=== PATIENT | male | born 1990 | race Caucasian/White ===

== ENCOUNTER 2016-07-20 09:02 | Emergency (ER) | payer MEDICAID | END 2016-07-20 11:07 | disposition home or self-care (01) | LOC: D.ER 09:02 | DX: S83.92XA Sprain of unspecified site of left knee, initial encounter (principal); W19.XXXA Unspecified fall, initial encounter; Y93.51 Activity, roller skating (inline) and skateboarding; Y92.410 Unspecified street and highway as the place of occurrence of the external cause ==

== ENCOUNTER 2016-09-09 17:21 | Emergency (ER) | payer MEDICAID | END 2016-09-09 19:37 | disposition home or self-care (01) | LOC: D.ER 17:21 | DX: S63.501A Unspecified sprain of right wrist, initial encounter (principal); W19.XXXA Unspecified fall, initial encounter; Y93.51 Activity, roller skating (inline) and skateboarding; Y92.89 Other specified places as the place of occurrence of the external cause; F17.200 Nicotine dependence, unspecified, uncomplicated ==

== ENCOUNTER 2018-11-19 22:04 | Inpatient (IN) | payer MEDICAID ==
[~2018-11-19] VITALS: Ht 177.8 cm; Wt 92.3 kg
[2018-11-19 22:51] LABS: BASOPHILS 0.1 % (0-2); EOSINOPHILS 0.3 % (0-7); HEMATOCRIT 45.6 % (42.0-54.0); HEMOGLOBIN 16.9 g/dL (13.5-17.5); IMMATURE GRANULOCYTES 0.3 % (0-5); LYMPHOCYTES 14.8 % (15-50); MCH 30.7 pg (26.0-34.0); MCHC 37.1 g/dL (31.0-37.0); MCV 82.8 fL (80.0-100.0); MEAN PLATELET VOLUME 9.1 fL (7.4-10.4); MONOCYTES 16.5 % (2-11); PLATELET COUNT 234 10x3/uL (130-400); RBC 5.51 10x6/uL (4.20-6.10); RDW 13.1 % (11.5-14.5); WBC 17.3 10x3/uL (4.8-10.8)
[2018-11-19 23:24] LABS: ANION GAP 21.4 mmol/L (8-16); BILIRUBIN - TOTAL 1.4 mg/dL (0.2-1.3); CARBON DIOXIDE 22.4 mmol/L (21.0-32.0); CREATININE - SERUM 3.6 mg/dL (0.6-1.3); POTASSIUM - SERUM 3.8 mmol/L (3.5-5.1); PROTEIN - SERUM 9.1 g/dL (6.4-8.2)
[2018-11-19 23:31] LABS: THYROID STIMULATING HORMONE 1.17 uIU/mL (0.36-3.74)
--- NOTE | 2018-11-19 23:46 | NUR ---
PT GIVEN BLANKET.
[2018-11-20 00:24] LABS: APPEARANCE HAZY (CLEAR); BILIRUBIN NEGATIVE (NEGATIVE); COLOR YELLOW (YELLOW); GLUCOSE NEGATIVE (NEGATIVE); KETONE NEGATIVE (NEGATIVE); NITRITE NEGATIVE (NEGATIVE); PROTEIN 1+ mg/dL (NEGATIVE); UROBILINOGEN NORMAL (NORMAL)
[2018-11-20 00:26] LABS: BACTERIA MODERATE /hpf (NONE SEEN); EPITHELIAL CELLS 0-5 /hpf (0-5); MUCUS <1+ /lpf (NONE SEEN); RED CELLS - URINE 0-5 /hpf (0-5); WHITE CELLS - URINE 0-5 /hpf (0-5)
[2018-11-20 00:27] LABS: CALCIUM OXALATE CRYSTALS 0-5 /hpf (NONE SEEN)
[2018-11-20 00:30] LABS: UDS - AMPHET POSITIVE QUAL (NEGATIVE); UDS - BARB NEGATIVE QUAL (NEGATIVE); UDS - BENZO NEGATIVE QUAL (NEGATIVE); UDS - COCAINE NEGATIVE QUAL (NEGATIVE); UDS - OPIATE NEGATIVE QUAL (NEGATIVE); UDS - PCP NEGATIVE QUAL (NEGATIVE); UDS - THC NEGATIVE QUAL (NEGATIVE)
[2018-11-20 00:50] LABS: CREATINE KINASE 950 UL (21-232)
[2018-11-20 00:51] LABS: CKMB 9.5 U/L (0.0-3.6)
--- NOTE | 2018-11-20 01:55 | NUR ---
PT'S SECOND 1000ML BOLUS OF NORMAL SALINE FINISHED.
[2018-11-20 02:33] VITALS: BP 121/67; Ht 177.8 cm; Wt 92.3 kg
--- NOTE | 2018-11-20 03:32 | NUR ---
PT LEFT FLOOR. 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 EXPLAINED TO PT THAT IS NOT ALLOWED ON HIS DIET HE LEFT IT ON THE COUNTER AND WALKED BACK TO HIS ROOM
--- NOTE | 2018-11-20 04:43 | NUR ---
PT REMOVED IV AT THIS TIME. IV WAS FOUND ON GROUND WITH BLOOD SURROUNDING IT. PT STATES HE WAS "TRYING TO TAKE OFF MY SHIRT" IV RESITED TO L HAND 20G 1 ATTEMPT.
[2018-11-20 05:11] LABS: BASOPHILS 0.2 % (0-2); EOSINOPHILS 0.8 % (0-7); HEMATOCRIT 40.6 % (42.0-54.0); HEMOGLOBIN 14.6 g/dL (13.5-17.5); IMMATURE GRANULOCYTES 0.2 % (0-5); LYMPHOCYTES 30.7 % (15-50); MCV 83.5 fL (80.0-100.0); MEAN PLATELET VOLUME 9.3 fL (7.4-10.4); MONOCYTES 15.6 % (2-11); NEUTROPHILS 52.5 % (40-80); PLATELET COUNT 211 10x3/uL (130-400); RBC 4.86 10x6/uL (4.20-6.10); RDW 13.2 % (11.5-14.5)
[2018-11-20 05:26] LABS: WBC 12.7 10x3/uL (4.8-10.8)
[2018-11-20 05:34] LABS: ANION GAP 16.1 mmol/L (8-16); BILIRUBIN - TOTAL 1.43 mg/dL (0.2-1.3); CALCIUM 8.1 mg/dL (8.5-10.1); CARBON DIOXIDE 24.1 mmol/L (21.0-32.0); MAGNESIUM - SERUM 2.4 mg/dL (1.8-2.4); PHOSPHOROUS 4.5 mg/dL (2.5-4.9); PROTEIN - SERUM 7.5 g/dL (6.4-8.2)
[2018-11-20 05:37] LABS: CREATININE - SERUM 2.1 mg/dL (0.6-1.3); POTASSIUM - SERUM 3.2 mmol/L (3.5-5.1)
--- NOTE | 2018-11-20 07:10 | NUR ---
REPORT RECEIVED FROM MOBILE DEVICE DEVELOPER AND PATIENT CARE ASSUMED. PATIENT LAYING IN BED ON LT SIDE WITH EYES CLOSED AND BREATHING EVENLY. PATIENT IS STABLE AND VSS. WILL CONTINUE WITH PLAN OF CARE. SR UP X 2 BED IN LOW POSITION AND CALL LIGHT IN REACH.
[2018-11-20 07:48] VITALS: BP 103/50
--- NOTE | 2018-11-20 08:40 | NUR ---
CALLED TO PATIENT ROOM . PATIENT SITTING ON BED ROCKING AND SPEAKING RAPIDLY. STATES HE NEEDS TO GO TO HIS CAR TO GET HIS PHONE TO CALL HIS JOB. I INFORMED THAT I NEEDED TO SL HIS IV. LEFT TO GET SUPPLIES. RETURNED TO ROOM TO FIND ROOM EMPTY, ALL PERSONAL BELONGINGS GONE AND INTACT IV CATHETER LAYING ON BED. TELEMETRY UNIT NOT FOUND IN BED. REPORTED TO GEOSCIENCE LABORATORY TECHNICIAN MAMADOU. ATTEMPTED TO CALL PATIENT TO RETRIEVE TELMETRY UNIT AND PHONE WENT STRAIGHT TO WHICH IS NOT SET UP. REPORTED TO GEOSCIENCE LABORATORY TECHNICIAN MAMADOU.
--- NOTE | 2018-11-20 15:36 | MORECARE ---
CASE MANAGEMENT DISCHARGE SUMMARY PATIENT: LEIDY CARRASCO UNIT: [id number] ADM DATE: 11/20/18 AGE: 28 : 89 SEX: M ROOM/BED: D.2131 AUTHOR: MONICA NIELSEN PHYSICIAN: REFERRING PHYSICIAN: VY WISE MD DATE OF SERVICE: 11/20/18 Discharge Plan Patient Name: LEIDY CARRASCO [facility] [facility] 1990 Planned Disposition: Left Against Medical Advice Anticipated Discharge Date: 11/20/18 Discharge Date: 11/20/2018 Expected LOS: 1 Initial Reviewer: [email or web address] Initial Review Date: 11/20/2018 Generated: 11/20/18 4:35 pm Patient Name: LEIDY CARRASCO Page [phone] at 1536 All edits/amendments must be made on the electronic document DICTATION DATE: 11/20/18 1535 ENVIRONMENTAL PROGRAMS MANAGER: BISI 11/20/18 1535 RPT#: [id number] DC DATE:11/20/18 STATUS: DIS IN [facility] [address] [place] [address] END OF REPORT
== END 2018-11-20 08:30 | disposition left against medical advice (07) | DRG 683 ==
LOC: D.ER 22:04 → D.M2 11-20 00:09
PROVIDERS: Family Medicine; ADMIT Family Medicine; ATTEND Family Medicine
DX: N17.9 Acute kidney failure, unspecified (principal); E87.1 Hypo-osmolality and hyponatremia; M62.82 Rhabdomyolysis; F15.90 Other stimulant use, unspecified, uncomplicated; J98.2 Interstitial emphysema